=== PATIENT | male | born 1960 | race Caucasian/White ===

== ENCOUNTER 2020-05-02 11:27 | Emergency (ER) | payer OTHER ==
[~2020-05-02] VITALS: Ht 182.9 cm; Wt 170.0 kg
[2020-05-02 11:42] VITALS: BP 190/100
--- NOTE | 2020-05-02 11:55 | NUR ---
Bleeding controlled. NAD.
[2020-05-02] MEDS ORDERED: LIDOCAINE-MPF 1%, 5ML ONE (12:01)
[2020-05-02] MEDS ORDERED: LIDOCAINE-MPF 1%, 5ML INFIL ONE (12:30)
[2020-05-02] MEDS ORDERED: NEOSPORIN OINT. PKT 1 PACKET ONE (12:44)
--- NOTE | 2020-05-02 12:56 | NUR ---
Patient/Caregiver given discharge instructions and they have confirmed that they understand the instructions. Patient ambulatory with steady gait.
== END 2020-05-02 12:57 | disposition home or self-care (01) ==
LOC: ED 12:45
DX: S61.211A Laceration without foreign body of left index finger without damage to nail, initial encounter (principal); X58.XXXA Exposure to other specified factors, initial encounter; Y93.89 Activity, other specified; Y92.009 Unspecified place in unspecified non-institutional (private) residence as the place of occurrence of the external cause; Y99.8 Other external cause status
CPT/HCPCS: 12002; 99282